=== PATIENT | male | born 1970 | race Caucasian/White ===

== ENCOUNTER 2022-01-11 14:59 | Inpatient (IN) | payer BC ==
[~2022-01-11] VITALS: Ht 172.7 cm; Wt 87.3 kg
[2022-01-11] VITALS (8 sets, daily range): BP systolic 87–110; BP diastolic 45–71
[2022-01-11] MEDS ORDERED: ONDANSETRON HCL INJ 2MG/ML 2ML 2 MG/ML VIAL ONE (16:06)
[2022-01-11] MEDS ORDERED: SODIUM CHLORIDE 0.9% 1000ML 1,000 ML IV SCH ×2 (16:15)
[2022-01-11] MEDS ORDERED: ADDERALL XR 2525 MG (16:36)
[2022-01-11] MEDS ORDERED: LISINOPRIL10 MG PO (16:36)
[2022-01-11] MEDS ORDERED: LEVOTHYROXINE150 MC1 (16:36)
[2022-01-11] MEDS ORDERED: METRONIDAZOLE 500MG/NS 100ML 100 ML IV ONE ×2 (16:37→17:00)
[2022-01-11] MEDS ORDERED: CYMBALTA60 MG PO (16:37)
[2022-01-11] MEDS ORDERED: MONTELUKAST SOD10 MG PO (16:37)
[2022-01-11] MEDS ORDERED: SODIUM CHLORIDE 0.9% 100 ML ONE (16:38)
[2022-01-11] MEDS ORDERED: CEFEPIME HCL 1 GM VIAL ONE (16:38)
[2022-01-11] MEDS ORDERED: ONDANSETRON HCL INJ 2MG/ML 2ML 2 MG/ML VIAL IV STA (16:54)
[2022-01-11] MEDS ORDERED: CEFEPIME 2 GM in SODIUM CHLORIDE 0.9% 100 ML IV ONE (17:00)
[2022-01-11] MEDS ORDERED: SODIUM CHLORIDE 0.9% 1000ML 1,000 ML IV ONE ×2 (17:00→20:39)
[2022-01-11 17:46] LABS: BASOPHILS # (AUTO) 0.1 (0.0-0.1); BASOPHILS % 0.3 % (0.0-1.0); EOSINOPHILS % 0.1 % (0.0-6.0); HEMATOCRIT 51.9 % (38.2-49.6); HEMOGLOBIN 16.9 g/dL (14.0-18.0); LYMPHOCYTES # (AUTO) 0.7 (1.0-3.2); MEAN CORPUSCULAR HGB CONC 32.6 g/dL (31-35); MEAN CORPUSCULAR VOLUME 89.2 fL (81-99); MONOCYTES # (AUTO) 1.1 (0.2-0.8); NEUTROPHILS % 91.1 % (38.7-80.0); PLATELET COUNT 479 x10e3/uL (140-360); RED BLOOD COUNT 5.82 x10e6/uL (4.3-5.7); RED CELL DISTRIBUTION WIDTH 14.3 % (11.7-14.4)
[2022-01-11 18:06] LABS: INR 0.95; PROTHROMBIN TIME 13.6 seconds (11.9-14.5)
[2022-01-11 18:07] LABS: PARTIAL THROMBOPLASTIN TIME 30.3 seconds (23.8-35.5)
[2022-01-11] MEDS ORDERED: SODIUM CHLORIDE 0.9% 1000ML 2,000 ML ONE (18:59)
[2022-01-11] MEDS ORDERED: ONDANSETRON HCL INJ 2MG/ML 2ML 2 MG/ML VIAL IV PRN (19:00)
[2022-01-11] MEDS ORDERED: ACETAMINOPHEN 325 MG TAB ONE (19:27)
[2022-01-11] MEDS ORDERED: IBUPROFEN 600 MG TAB ONE (19:29)
[2022-01-11] MEDS: SODIUM CHLORIDE 0.9% 1000ML 1,000 ML IV SCH (20:59)
[2022-01-11] MEDS: METRONIDAZOLE 500MG/NS 100ML 100 ML IV SCH (21:25)
[2022-01-12] VITALS (12 sets, daily range): BP systolic 86–125; BP diastolic 60–83
[2022-01-12] MEDS: SODIUM CHLORIDE 0.9% 1000ML 1,000 ML IV SCH ×3 (02:27→15:29)
[2022-01-12] MEDS: METRONIDAZOLE 500MG/NS 100ML 100 ML IV SCH ×3 (06:04→23:02)
[2022-01-12] MEDS: LEVOTHYROXINE SODIUM 50 MCG TAB PO SCH (06:04)
[2022-01-12 08:49] LABS: CREATINE KINASE 103 IU/L (30-200)
[2022-01-12 08:55] LABS: ALBUMIN 3.2 g/dL (3.5-5.0); ALBUMIN/GLOBULIN RATIO 1.1 (0.8-2.0); ANION GAP 15.1 mmol/L (8-16); CALCIUM 7.6 mg/dL (8.4-10.2); CREATININE, SERUM 3.41 mg/dL (0.72-1.25); POTASSIUM 3.1 mmol/L (3.5-5.1)
[2022-01-12] MEDS: DULOXETINE HCL 30 MG DELAYED RELEASE PO SCH (09:00)
[2022-01-12] MEDS: MONTELUKAST SODIUM 10 MG TAB PO SCH (09:00)
[2022-01-12] MEDS ORDERED: HYDRALAZINE HCL 20 MG/ML VIAL IV PRN (10:00)
[2022-01-12] MEDS ORDERED: POLYETHYLENE GLYCOL 3350 17 GM PACK PO PRN (10:00)
[2022-01-12] MEDS: FAMOTIDINE 20 MG/2 ML VIAL IV SCH ×2 (10:30→15:34)
[2022-01-12 10:50] LABS: CHOL/HDL RATIO 4.9 (3.9-4.7); MAGNESIUM 1.9 MG/DL (1.3-2.1); PHOSPHORUS 3.6 MG/DL (2.3-4.7)
[2022-01-12 11:10] LABS: THYROID STIMULATING HORMONE 0.026 uIU/mL (0.350-4.940)
[2022-01-12 12:44] LABS: BASOPHILS # (AUTO) 0.1 (0.0-0.1); BASOPHILS % 0.6 % (0.0-1.0); EOSINOPHILS # (AUTO) 0.6 (0.0-0.4); EOSINOPHILS % 3.6 % (0.0-6.0); HEMATOCRIT 46.7 % (38.2-49.6); HEMOGLOBIN 14.5 g/dL (14.0-18.0); LYMPHOCYTES # (AUTO) 1.6 (1.0-3.2); LYMPHOCYTES % 9.1 % (18.0-39.1); MEAN CORPUSCULAR HEMOGLOBIN 28.9 pg (28-32); MONOCYTES # (AUTO) 1.8 (0.2-0.8); MONOCYTES % 10.8 % (4.4-11.3); NEUTROPHILS # (AUTO) 12.9 (2.1-6.9); NEUTROPHILS % 75.5 % (38.7-80.0); PLATELET COUNT 276 x10e3/uL (140-360); RED BLOOD COUNT 5.02 x10e6/uL (4.3-5.7); RED CELL DISTRIBUTION WIDTH 14.5 % (11.7-14.4)
[2022-01-12] MEDS ORDERED: POTASSIUM CHLORIDE 20 MEQ TAB CR PO NR (13:30)
[2022-01-12] MEDS ORDERED: LACTATED RINGER'S 1,000 ML INJ ONE (13:45)
[2022-01-12 18:54] LABS: CREATINE KINASE 102 IU/L (30-200)
[2022-01-12 20:49] LABS: CLARITY,URINE CLEAR (CLEAR); COLOR,URINE YELLOW (YELLOW); KETONES,URINE NEGATIVE (NEGATIVE); LEUKOCYTE ESTERASE ,URINE NEGATIVE (NEGATIVE); NITRITE,URINE NEGATIVE (NEGATIVE); PROTEIN,URINE DIPSTICK 1+ (NEGATIVE); URINE UROBILINOGEN 0.2 mg/dL (0.2 - 1)
[2022-01-12 20:58] LABS: BACTERIA,URINE MODERATE /HPF; EPITHELIAL CELLS,URINE FEW /LPF; WBC,URINE (MAN) 0-5 /HPF (0-5)
[2022-01-12 21:48] LABS: OCCULT BLOOD STOOL NEGATIVE (NEGATIVE); WBC,FECAL (FECAL LACTOFERRIN) POSITIVE (NEGATIVE)
[2022-01-13] VITALS (7 sets, daily range): BP systolic 104–128; BP diastolic 63–92
[2022-01-13 04:58] LABS: BASOPHILS # (AUTO) 0.1 (0.0-0.1); BASOPHILS % 0.6 % (0.0-1.0); EOSINOPHILS # (AUTO) 0.5 (0.0-0.4); EOSINOPHILS % 4.6 % (0.0-6.0); HEMATOCRIT 41.1 % (38.2-49.6); HEMOGLOBIN 13.5 g/dL (14.0-18.0); LYMPHOCYTES # (AUTO) 1.4 (1.0-3.2); LYMPHOCYTES % 12.5 % (18.0-39.1); MEAN CORPUSCULAR HEMOGLOBIN 28.6 pg (28-32); MEAN CORPUSCULAR HGB CONC 32.8 g/dL (31-35); MONOCYTES % 9.4 % (4.4-11.3); NEUTROPHILS % 72.6 % (38.7-80.0); PLATELET COUNT 262 x10e3/uL (140-360); RED BLOOD COUNT 4.72 x10e6/uL (4.3-5.7); RED CELL DISTRIBUTION WIDTH 13.5 % (11.7-14.4)
[2022-01-13 05:00] LABS: MEAN CORPUSCULAR VOLUME 87.1 fL (81-99)
[2022-01-13 05:21] LABS: CREATINE KINASE 60 IU/L (30-200)
[2022-01-13 05:25] LABS: ALBUMIN 2.9 g/dL (3.5-5.0); ALBUMIN/GLOBULIN RATIO 0.9 (0.8-2.0); ANION GAP 14.1 mmol/L (8-16); CALCIUM 8.7 mg/dL (8.4-10.2); CREATININE, SERUM 2.32 mg/dL (0.72-1.25); POTASSIUM 3.1 mmol/L (3.5-5.1)
[2022-01-13] MEDS: METRONIDAZOLE 500MG/NS 100ML 100 ML IV SCH ×3 (06:01→21:50)
[2022-01-13] MEDS: LEVOTHYROXINE SODIUM 50 MCG TAB PO SCH (06:01)
[2022-01-13] MEDS: SODIUM CHLORIDE 0.9% 1000ML 1,000 ML IV SCH ×2 (06:02→09:31)
[2022-01-13] MEDS ORDERED: POTASSIUM CHLORIDE 20 MEQ TAB CR PO ONE (08:30)
[2022-01-13] MEDS: DULOXETINE HCL 30 MG DELAYED RELEASE PO SCH (09:30)
[2022-01-13] MEDS: FAMOTIDINE 20 MG/2 ML VIAL IV SCH ×2 (09:30→17:05)
[2022-01-13] MEDS: MONTELUKAST SODIUM 10 MG TAB PO SCH (09:30)
[2022-01-13] MEDS ORDERED: POTASSIUM CHLORIDE 20 MEQ TAB CR PO NR (12:30)
[2022-01-13] MEDS: SODIUM BICARBONATE 650 MG TAB PO SCH (17:05)
[2022-01-13] MEDS: LACTATED RINGER'S 1,000 ML INJ SCH (17:09)
[2022-01-13] MEDS: MELATONIN 3 MG TAB PO SCH (22:33)
[2022-01-14] VITALS (8 sets, daily range): BP systolic 118–145; BP diastolic 84–96
[2022-01-14] MEDS: LACTATED RINGER'S 1,000 ML INJ SCH ×2 (04:42→14:02)
[2022-01-14 05:13] LABS: CALCIUM 8.5 mg/dL (8.4-10.2); CREATININE, SERUM 1.57 mg/dL (0.72-1.25); MAGNESIUM 1.9 MG/DL (1.3-2.1)
[2022-01-14] MEDS: METRONIDAZOLE 500MG/NS 100ML 100 ML IV SCH ×3 (05:28→22:36)
[2022-01-14] MEDS: LEVOTHYROXINE SODIUM 50 MCG TAB PO SCH (05:54)
[2022-01-14] MEDS: DULOXETINE HCL 30 MG DELAYED RELEASE PO SCH (10:49)
[2022-01-14] MEDS: SODIUM BICARBONATE 650 MG TAB PO SCH ×2 (10:49→16:47)
[2022-01-14] MEDS: MONTELUKAST SODIUM 10 MG TAB PO SCH (10:49)
[2022-01-14] MEDS: FAMOTIDINE 20 MG/2 ML VIAL IV SCH ×2 (10:57→16:47)
[2022-01-14] MEDS: POTASSIUM CHLORIDE 20 MEQ TAB CR PO SCH (11:06)
[2022-01-14] MEDS ORDERED: POTASSIUM CHLORIDE 20MEQ/100ML 100 ML IV ONE (12:45)
[2022-01-14] MEDS: MELATONIN 3 MG TAB PO SCH (21:39)
[2022-01-15] VITALS (7 sets, daily range): BP systolic 118–163; BP diastolic 77–93
[2022-01-15] MEDS: LACTATED RINGER'S 1,000 ML INJ SCH ×2 (05:16→16:07)
[2022-01-15] MEDS: METRONIDAZOLE 500MG/NS 100ML 100 ML IV SCH ×2 (06:01→14:08)
[2022-01-15] MEDS: LEVOTHYROXINE SODIUM 50 MCG TAB PO SCH (06:01)
[2022-01-15 06:21] LABS: BASOPHILS # (AUTO) 0.1 (0.0-0.1); BASOPHILS % 0.9 % (0.0-1.0); EOSINOPHILS # (AUTO) 0.7 (0.0-0.4); EOSINOPHILS % 9.6 % (0.0-6.0); HEMATOCRIT 37.4 % (38.2-49.6); HEMOGLOBIN 12.7 g/dL (14.0-18.0); LYMPHOCYTES # (AUTO) 1.3 (1.0-3.2); LYMPHOCYTES % 17.3 % (18.0-39.1); MEAN CORPUSCULAR HEMOGLOBIN 28.8 pg (28-32); MEAN CORPUSCULAR VOLUME 84.8 fL (81-99); MONOCYTES # (AUTO) 0.7 (0.2-0.8); MONOCYTES % 8.9 % (4.4-11.3); NEUTROPHILS # (AUTO) 4.7 (2.1-6.9); NEUTROPHILS % 62.9 % (38.7-80.0); PLATELET COUNT 257 x10e3/uL (140-360); RED BLOOD COUNT 4.41 x10e6/uL (4.3-5.7); RED CELL DISTRIBUTION WIDTH 13.1 % (11.7-14.4)
[2022-01-15 07:08] LABS: ANION GAP 12.9 mmol/L (8-16); CALCIUM 8.5 mg/dL (8.4-10.2); CREATININE, SERUM 1.26 mg/dL (0.72-1.25); PHOSPHORUS 2.9 MG/DL (2.3-4.7)
[2022-01-15 07:12] LABS: POTASSIUM 2.9 mmol/L (3.5-5.1)
[2022-01-15] MEDS: DULOXETINE HCL 30 MG DELAYED RELEASE PO SCH (08:57)
[2022-01-15] MEDS: POTASSIUM CHLORIDE 20 MEQ TAB CR PO SCH (08:57)
[2022-01-15] MEDS: FAMOTIDINE 20 MG/2 ML VIAL IV SCH ×2 (08:57→17:21)
[2022-01-15] MEDS: SODIUM BICARBONATE 650 MG TAB PO SCH ×2 (08:58→17:10)
[2022-01-15] MEDS: MONTELUKAST SODIUM 10 MG TAB PO SCH (08:58)
[2022-01-15] MEDS ORDERED: POTASSIUM CHLORIDE 20 MEQ TAB CR PO ONE (13:00)
[2022-01-15] MEDS: CIPROFLOXACIN 500 MG TAB PO SCH (17:10)
[2022-01-15] MEDS: MELATONIN 3 MG TAB PO SCH (21:28)
[2022-01-15] MEDS: METRONIDAZOLE 500 MG TAB PO SCH (21:29)
[2022-01-16 00:19] VITALS: BP 110/75
[2022-01-16 04:00] VITALS: BP 107/77
[2022-01-16] MEDS: LACTATED RINGER'S 1,000 ML INJ SCH (05:27)
[2022-01-16] MEDS: METRONIDAZOLE 500 MG TAB PO SCH (06:12)
[2022-01-16] MEDS: LEVOTHYROXINE SODIUM 50 MCG TAB PO SCH (06:13)
[2022-01-16 08:00] VITALS: BP 119/83
[2022-01-16 08:17] VITALS: BP 119/83
[2022-01-16 08:26] LABS: ANION GAP 10.1 mmol/L (8-16); CALCIUM 8.7 mg/dL (8.4-10.2); CREATININE, SERUM 1.14 mg/dL (0.72-1.25); MAGNESIUM 1.6 MG/DL (1.3-2.1); POTASSIUM 3.1 mmol/L (3.5-5.1)
[2022-01-16] MEDS: POTASSIUM CHLORIDE 20 MEQ TAB CR PO SCH (09:00)
[2022-01-16] MEDS: MONTELUKAST SODIUM 10 MG TAB PO SCH (09:00)
[2022-01-16] MEDS: DULOXETINE HCL 30 MG DELAYED RELEASE PO SCH (09:00)
[2022-01-16] MEDS: SODIUM BICARBONATE 650 MG TAB PO SCH (09:00)
[2022-01-16] MEDS: FAMOTIDINE 20 MG/2 ML VIAL IV SCH (09:00)
[2022-01-16] MEDS: CIPROFLOXACIN 500 MG TAB PO SCH (09:00)
[2022-01-16] MEDS ORDERED: POTASSIUM CHLORIDE 20 MEQ TAB CR PO STA (09:28)
[2022-01-16] MEDS ORDERED: METRONIDAZOLE500 MG PO (09:30)
[2022-01-16] MEDS ORDERED: MAGNESIUM SULFATE 2GM/50ML 50 ML IV ONE (09:30)
[2022-01-16] MEDS ORDERED: POTASSIUM CHLORIDE 20 MEQ TAB CR PO ONE (10:45)
[2022-01-16] MEDS ORDERED: ONDANSETRON HCL 4 MG ORAL DISINTEGRATING TAB PO PRN (12:30)
[2022-01-16 14:23] VITALS: BP 120/88
[2022-01-16] MEDS ORDERED: FAMOTIDINE 20 MG TAB PO SCH (16:30)
== END 2022-01-16 14:53 | disposition home or self-care (01) | DRG 872 ==
LOC: FSED 15:22 → ERHOLD 18:53 → ICU 20:30 → MED/SURG2 01-14 13:52
PROVIDERS: ADMIT Internal Medicine; ATTEND Internal Medicine
DX: A41.9 Sepsis, unspecified organism (principal); N17.9 Acute kidney failure, unspecified; A09 Infectious gastroenteritis and colitis, unspecified; E87.2 Acidosis; R55 Syncope and collapse; E86.0 Dehydration; E03.9 Hypothyroidism, unspecified; E87.6 Hypokalemia; R65.20 Severe sepsis without septic shock; F32.A Depression, unspecified; F90.9 Attention-deficit hyperactivity disorder, unspecified type; Z88.6 Allergy status to analgesic agent; Z91.018 Allergy to other foods; Z20.822 Contact with and (suspected) exposure to COVID-19; G47.00 Insomnia, unspecified; K58.9 Irritable bowel syndrome, unspecified; E83.42 Hypomagnesemia
CPT/HCPCS: 36415; 70450; 71045; 74176; 76770; 80048; 80053; 80061; 80076; 81001; 81003; 82270; 82550; 82553; 83036; 83605; 83630; 83735; 83993; 84100; 84443; 84484; 85025; 85610; 85730; 87040; 87045; 87177; 87328; 87493; 93005; 94799; 96374; 99284; J0692; J2405; J3475; J3480; J7030; J7050; J7121